=== PATIENT | female | born 1975 | race Caucasian/White ===

== ENCOUNTER → 2024-05-11 06:32 | Outpatient (REF) | payer OTHER, SELFPAY | LOC: WDC 06:32 | PROVIDERS: ATTENDING PHYSICIAN Obstetrics & Gynecology; FAMILY PHYSICIAN Family Medicine | DX: Z12.31 Encounter for screening mammogram for malignant neoplasm of breast (principal) | CPT/HCPCS: 77063; 77067 ==

== ENCOUNTER 2025-01-16 16:50 | Emergency (ER) | payer OTHER, SELFPAY ==
[2025-01-16 16:57] VITALS: BP 199/102
[2025-01-16 17:17] LABS: % Basophils 0.6 % (0-2); % Eosinophils 1.3 % (0-6); % Immature Granulocytes 0.2 % (0-0.5); % Lymphocytes 46.3 % (20.5-51.1); % Neutrophils 43.6 % (42.2-75.2); Absolute Eosinophils 0.1 10^3/uL (0-0.7); Absolute Lymphocytes 2.9 10^3/uL (1.2-3.4); Absolute Monocytes 0.5 10^3/uL (0.1-0.6); Absolute Neutrophils 2.7 10^3/uL (1.4-6.5); Hematocrit 42.5 % (37.0-47.0); Hemoglobin 14.6 g/dL (12.0-16.0); Mean Corp Hgb Conc. 34.4 g/dL (33.0-37.0); Mean Corpuscular Hgb 27.9 pg (27.0-31.0); Mean Corpuscular Volume 81.3 fL (81.0-99.0); Mean Platelet Volume 11.1 fL (7.4-10.4); Nucleated Red Blood Cells % 0 %; Platelet Count 176 10^3/uL (130-400); Red Blood Cell Count 5.23 10^6/uL (4.20-5.40); Red Cell Dist. Width 13.2 % (11.5-14.5); White Blood Cell Count 6.2 10^3/uL (4.8-10.8)
[2025-01-16 17:56] LABS: ALT (SGPT) 18 U/L (0-35); AST (SGOT) 24 U/L (14-36); Albumin 5.3 g/dl (3.5-5.0); Alkaline Phosphatase 76 U/L (38-126); Blood Urea Nitrogen 15 mg/dl (7-17); Calcium 10.1 mg/dl (8.4-10.2); Carbon Dioxide 25 mmol/L (22-30); Chloride 107 mmol/L (98-107); Glucose 118 mg/dl (70-99); Potassium 3.6 mmol/L (3.5-5.1); Sodium 141 mmol/L (135-145); Total Bilirubin 0.8 mg/dl (0.2-1.3); Total Protein 7.8 g/dl (6.3-8.2); eGFR > 60.00
[2025-01-16 21:24] VITALS: BP 190/94
[2025-01-16 21:38] VITALS: BP 172/93
--- NOTE | 2025-01-16 21:53 | ED.GENMED ---
History of Present Illness
General
Chief Complaint: Blood Pressure Problem
Source: patient and family
Exam Limitations: none
Time Seen by Provider: 01/16/25 20:57
Nursing documentation reviewed up to this point in time: agreed with
History of Present Illness
History of Present Illness:
49-year-old female presenting to the emergency department today with concerns of elevated blood pressure at home. Claims have mild headache denies any chest pain shortness of breath. Does feel that her heart rate sometimes elevates but has not
been continuous. Has been very stressed recently. Is on 2.5 mg of lisinopril daily at this point.
Past History
Past History
ED Past Medical History: None
ED Past Surgical History: Gynecological
Social History
Tobacco: Non-smoker
Alcohol: None
Drug: None
Personal:
Living: with family
Employment: Employed
Family History
Family History: Hypertension
Review of Systems
Review of Systems
Allergies reviewed?: Yes
All Other Systems: ROS reviewed and negative except as documented in HPI and ROS
Phy Exam
Physical Exam
Physical Exam:
GENERAL: Alert , in no apparent distress
EYE: pupils equal and reactive
NECK: Supple, no significant adenopathy.
ENT: o/p clr, mmm.
CARDIAC: Regular rate and rhythm .
LUNGS: Clear breath sounds bilaterally, no acute respiratory distress, no wheezes/rales/rhonchi
ABDOMEN: Soft, without focal tenderness, no r/g, no cvat
NEUROLOGICAL: Alert and oriented, no focal neuro deficits
SKIN: Warm and dry, skin intact.
MUSCULOSKELETAL: No edema, well perfused.
PSYCH: Normal and appropriate interaction.
Course
Orders/Labs/Results
Orders:
Orders
01/16/25 16:56
EKG [Electrocardiogram (*1)] Urgent
Reason for Study: Hypertension, Benign
01/16/25 16:57
EKG- Treatment ONCE
01/16/25 17:04
Complete Blood Count/With Diff Urgent
Comprehensive Metabolic Panel Urgent
01/16/25 21:52
Lisinopril [Zestril] 10 mg PO NOW STA
Abnormal Lab Results
01/16/25
17:04
MPV 11.1 H fL
(7.4-10.4)
Glucose 118 H mg/dl
(70-99)
Albumin 5.3 H g/dl
(3.5-5.0)
01/16/25 17:04
01/16/25 17:04
Vital Signs
Initial and Last Documented VS:
Initial Vital Signs
Temp Pulse Resp BP Pulse Ox
98.4 F 96 18 199/102 98
01/16/25 16:57 01/16/25 16:57 01/16/25 16:57 01/16/25 16:57 01/16/25 16:57
Last Documented Vital Signs
Temp Pulse Resp BP Pulse Ox
98.4 F 74 18 170/88 98
01/16/25 16:57 01/16/25 22:07 01/16/25 16:57 01/16/25 22:07 01/16/25 16:57
MDM/Problems Addressed
MDM/Problems Addressed:
49-year-old female presenting to the emergency department today with concerns of elevated blood pressure. Upon arrival here in the 190s over 100 improving to 170s over 80s without specific treatment. Normal vital signs otherwise EKG without
emergent findings labs unremarkable. Patient without any evidence of hypertensive emergency. Was advised to increase her dose of lisinopril and advised for close outpatient follow-up. Return precautions given.
*Critical Care Note
Total Time (30-74mins, 75-104mins- exclusive of procedures): Not Applicable
ED Attending Note
-
Portions of this chart may have been created with voice recognition software.� Occasional wrong word or��sound alike� substitutions may have occurred due to the inherent limitations of voice recognition software.
Discharge Plan
Departure
Patient Disposition: Home (Routine Discharge)
Date of Disposition: 01/16/25
Time of Disposition: 21:53
Patient with high blood pressure during this ER visit?: Yes
Condition: Good
Covid-19: Not Applicable
Discharge Problem:
High blood pressure
Instructions: High Blood Pressure (DC)
Prescriptions:
New
lisinopril 10 mg tablet
10 mg PO DAILY 14 Days Qty: 14 0RF
No Action
phenazopyridine 200 MG tablet
200 mg PO TID Qty: 6 0RF
ibuprofen 600 MG tablet
600 mg PO Q6H Qty: 30 0RF
levofloxacin 500 MG tablet
500 mg PO DAILY Qty: 6 0RF
Referrals:
Brianna Rees MD [Active] - Follow up in 5-7 days
Activity Restrictions/Additional Instructions:
You came to the emergency department today with concerns of high blood pressure. Here you have a reassuring assessment. Please take the 10 mg of lisinopril and keep a log of your blood pressure and follow-up closely with your primary care doctor.
Return for any worsening, new or concerning symptoms.
Interventions
Interventions:
*Risk Screen - Suicide Last Done: 01/16/25 16:57
*General Assessment Last Done: 01/16/25 16:57
*Neglect/Abuse Screening Last Done: 01/16/25 16:57
*ED- Fall Risk Assessment Last Done: 01/16/25 16:57
*ED COVID-19 Vaccine History Last Done: 01/16/25 16:57
ED- Cardiac Assessment Last Done: 01/16/25 21:00
ED- Neurological Assessment Last Done: 01/16/25 21:00
ED- Pulmonary Assessment Last Done: 01/16/25 21:00
Discharge Date and Time
Print Language: POLISH
[2025-01-16 22:00] VITALS: BP 170/88
[2025-01-16] MEDS: ZESTRIL 10 MG PO (22:07)
== END 2025-01-16 23:00 | disposition home or self-care (01) ==
LOC: EMR 16:50
PROVIDERS: Student in an Organized Health Care Education/Training Program; EMERGENCY PHYSICIAN Student in an Organized Health Care Education/Training Program; FAMILY PHYSICIAN Family Medicine
DX: I10 Essential (primary) hypertension (principal); Z79.899 Other long term (current) drug therapy
CPT/HCPCS: 99284; 80053; 85025; 93005

== ENCOUNTER → 2025-02-28 07:57 | Outpatient (REF) | payer OTHER, SELFPAY | LOC: RCS 07:57 | PROVIDERS: ATTENDING PHYSICIAN Internal Medicine Cardiovascular Disease; FAMILY PHYSICIAN Family Medicine | DX: I10 Essential (primary) hypertension (principal); R94.31 Abnormal electrocardiogram [ECG] [EKG] | CPT/HCPCS: 93306 ==

== ENCOUNTER → 2025-05-12 06:33 | Outpatient (REF) | payer OTHER, SELFPAY | LOC: WDC 06:33 | PROVIDERS: ATTENDING PHYSICIAN Obstetrics & Gynecology; FAMILY PHYSICIAN Family Medicine | DX: Z12.31 Encounter for screening mammogram for malignant neoplasm of breast (principal) | CPT/HCPCS: 77063; 77067 ==